=== PATIENT | male | born 1995 | race Caucasian/White ===

== ENCOUNTER 2022-07-24 10:54 | Emergency (ER) | payer OTHER ==
[~2022-07-24] VITALS: Ht 175.3 cm; Wt 81.1 kg
[2022-07-24 11:24] VITALS: BP 122/85
[2022-07-24 11:30] VITALS: BP 120/75
[2022-07-24 12:01] VITALS: BP 91/65
[2022-07-24 12:30] VITALS: BP 131/89
[2022-07-24 13:00] VITALS: BP 122/86
[2022-07-24] MEDS ORDERED: DOXY-CAPS100 MG PO (13:00)
[2022-07-24 13:18] VITALS: BP 122/86
== END 2022-07-24 13:27 | disposition home or self-care (01) | DRG 603 ==
LOC: ED 10:54
DX: L03.113 Cellulitis of right upper limb (principal); F17.210 Nicotine dependence, cigarettes, uncomplicated

== ENCOUNTER 2023-01-01 10:11 | Emergency (ER) | payer OTHER ==
[2023-01-01] VITALS (8 sets, daily range): BP systolic 123–135; BP diastolic 86–94
[~2023-01-01] VITALS: Ht 175.3 cm; Wt 78.4 kg
[~2023-01-01 10:11] MED LIST: DOXY-CAPS100 MG PO
[2023-01-01] MEDS ORDERED: AMOX/K CLAV875 M1 PO (12:40)
[2023-01-01] MEDS ORDERED: ZYRTEC10 MG PO (12:40)
== END 2023-01-01 13:25 | disposition home or self-care (01) | DRG 153 ==
LOC: ED 10:11
DX: J32.9 Chronic sinusitis, unspecified (principal); F17.210 Nicotine dependence, cigarettes, uncomplicated; Z20.822 Contact with and (suspected) exposure to COVID-19